=== PATIENT | female | born 1960 | race Asian ===

== ENCOUNTER 2016-05-14 13:16 | Emergency (ER) | payer OTHER ==
[2016-05-14 13:29] VITALS: RESP 16
--- NOTE | 2016-05-14 13:39 | EDPHY ---
H & P Stated Complaint: high B/P, H/A, light headed, vision changes Time Seen by Provider: 05/14/16 13:39 HPI/ROS: CHIEF COMPLAINT: Hypertension, vertigo, right-sided headache HISTORY OF PRESENT ILLNESS: The patient was referred to the emergency department by her primary care provider for evaluation of a multitude of symptoms. The patient has been having some labile hypertension over the past several days. She reportedly has had systolic blood pressures in the 130-160 range. She is also had diastolic blood pressures in the 100 range. She reports that she has a mild intermittent right-sided headache. She has also had some vague complaints of bilateral blurry vision. The patient denies any acute focal numbness or weakness. The patient denies chest pain or shortness of breath. The patient denies abdominal pain, hematuria or additional acute complaints. She has no history of a recent infection. She has no history of falling. She is not anticoagulated. REVIEW OF SYSTEMS: A comprehensive 10 point review of systems is otherwise negative aside from elements mentioned in the history of present illness. Source: Patient Exam Limitations: No limitations - Personal History Current Tetanus Diphtheria and Acellular Pertussis (TDAP): Unsure Tetanus Vaccine Date: unsure - Medical/Surgical History Hx Asthma: Yes Hx Chronic Respiratory Disease: No Hx Diabetes: No Hx Cardiac Disease: No Hx Renal Disease: No Hx Cirrhosis: No Hx Alcoholism: No Hx HIV/AIDS: No Hx Splenectomy or Spleen Trauma: No Other PMH: ASTHMA, SHOULDER SURGERY 2014 AND SPINE C3-4 SURGERY - Social History Smoking Status: Never smoked - Physical Exam Exam: General Appearance: Alert, no distress Eyes: Pupils equal and round no pallor or injection ENT, Mouth: Mucous membranes moist Respiratory: There are no retractions, lungs are clear to auscultation Cardiovascular: Regular rate and rhythm Gastrointestinal: Abdomen is soft and nontender, no masses, bowel sounds normal Neurological: A&O, normal motor function, normal sensory exam, normal cranial nerves Skin: Warm and dry, no rashes Musculoskeletal: Neck is supple nontender Extremities: symmetrical, full range of motion Constitutional: Initial Vital Signs Temperature (C) 36.9 C 05/14/16 13:25 Heart Rate 75 05/14/16 13:25 Respiratory Rate 16 05/14/16 13:25 Blood Pressure 145/87 H 05/14/16 13:25 O2 Sat (%) 92 05/14/16 13:25 O2 Delivery Mode Room Air Allergies/Adverse Reactions: Shellfish *RETIRED-01/18/12 [Shellfish] Allergy (Severe, Verified 11/26/14 21:00 ) Swelling/neck,face,throat aspirin [From Aspirin Regimen Melquiades/Calcium] Allergy (Intermediate, Verified 21:00) Hives morphine Allergy (Mild, Verified 11/26/14 21:00) Vomiting milk [Milk] Allergy (Unknown, Verified 11/26/14 21:00) UPSET STOMACH soybean [Soybean] Allergy (Unknown, Verified 11/26/14 21:00) VOMITING/HIVES Penicillins Allergy (Verified 11/26/14 21:00) HIVES/VOMITING shellfish derived Allergy (Verified 11/26/14 21:00) swelling neck,face,throat ENVIRONMENTAL Allergy (Mild, Uncoded 11/26/14 21:00) STUFFY NOSE Home Medications: Medication Instructions Recorded Budesonide/Formoterol 160/4.5 1 puffs IH BID 09/07/12 [Symbicort 160-4.5 Mcg Inhaler] Ibuprofen 800 mg PO BID PRN 09/07/12 Tramadol HCl 50 mg PO Q6 PRN 09/07/12 Cetirizine [ZyrTEC 10 mg (RX)] 10 mg PO HS 04/19/13 Medical Decision Making - Diagnostics Imaging: CT head without contrast: Negative for intracranial hemorrhage or obvious mass. ED Course/Re-evaluation: The patient presents to the emergency department with complaints of a mild right -sided headache and a normal neurologic examination is noted. She has had some symptoms of mild vertigo in came complains of a mild right-sided headache currently. A CT scan of the brain was ordered to exclude mass or intracranial hemorrhage. While in the emergency department. The patient was noted to have only mild hypertension. She did not receive any regular medications. CT scan of the head demonstrated no evidence of an intracranial mass or abnormality. At this point time I do feel the patient can be discharged home and follow up with her primary care provider. I see no clinical evidence of an acute stroke, intracranial hemorrhage or intracranial process which appears to be life- threatening. Additionally, she has no evidence of hypertensive emergency or urgency. Differential Diagnosis: Differential diagnosis considered includes intracranial hemorrhage, TIA, stroke , hypertensive emergency, hypertensive urgency Departure - Departure Disposition: Home, Routine, Self-Care Clinical Impression: Hypertension Condition: Good Instructions: Hypertension (ED) Additional Instructions: 1. Please return to the emergency department for any markedly worsening symptoms or other concerns. 2. Please follow up with Dr. Larson for a blood pressure recheck in the next week. Referrals: Sandy Larson MD [Primary Care Provider] - As per Instructions
--- NOTE | 2016-05-14 15:05 | CT ---
CT Scan of the Head (Without Contrast) Clinical Indications: 55-year-old female with a right-sided headache and vertigo, and no known trauma . Technique: Axial CT images were acquired from the foramen magnum through the skull vertex, without i ntravenous contrast. Soft tissue, subdural, and bone windows were reviewed on the computer workstati on. Images were reformatted at 5.00 and 1.25 mm increments, and are reformatted in sagittal and brandi nal planes. DFOV is 25.0 cm. Dose reduction techniques were utilized. Comparison Studies: Unenhanced CT scan of the brain, dated January 26, 2014, and MR imaging the bra in, dated July 26 and . Findings: Again, there are no mass lesions identified, and there is no evidence of an acute or subacu te intracranial hemorrhage, or an acute infarct. The ventricles and subarachnoid spaces are very mil dly prominent, consistent with some mild cortical atrophy. The bone windows reveal no sign of a frac ture. The mastoid air cells are free of fluid. There are tiny mucous retention cysts in the floor of each maxillary sinus and in the posterior sphenoid sinus, and some minimal mucosal thickening of the ethmoids. There is no air-fluid level. The craniocervical junction, calcified pineal gland, and the orbits are unremarkable. There is an empty sella turcica. The osseous internal auditory canals are no rmal in size and symmetrical in configuration. If there is continuing clinical concern regarding the patient's symptoms, MR imaging could be considered, if otherwise not contraindicated. Impression: There is no acute intracranial abnormality, and no significant interval change from prev ious studies. Results were discussed with Dr. Cal Mendez. A test result has been communicated to a licensed care provider and documented in [employer], 3:01:13 PM , 05/14/2016, [employer] Message ID [id number].
[2016-05-14 15:26] VITALS: BP 135/83; PULSE 79; TEMP 97.9; O2SAT 93
== END 2016-05-14 15:25 | disposition home or self-care (01) ==
DX: I10 Essential (primary) hypertension (principal); J45.909 Unspecified asthma, uncomplicated

== ENCOUNTER → 2018-04-07 | Outpatient (CLI) | payer OTHER | LOC: CIMAGING 07:35 | PROVIDERS: ATTEND Family Medicine | DX: Z12.31 Encounter for screening mammogram for malignant neoplasm of breast (principal) ==

== ENCOUNTER → 2018-09-22 | Outpatient (CLI) | payer OTHER | LOC: FIMAGING 14:55 | PROVIDERS: ATTEND Physician Assistant Surgical | DX: Z09 Encounter for follow-up examination after completed treatment for conditions other than malignant neoplasm (principal); Z98.1 Arthrodesis status; M50.31 Other cervical disc degeneration, high cervical region ==